=== PATIENT | female | born 1945 | race Two or more races ===

== ENCOUNTER 2022-06-16 15:30 | Emergency (ER) | payer OTHER ==
[~2022-06-16] VITALS: Ht 162.6 cm; Wt 81.6 kg
--- NOTE | 2022-06-16 16:41 | NUR ---
XRAY AT BEDSIDE
--- NOTE | 2022-06-16 18:16 | NUR ---
[facility] EMT AUBREY AT BEDSIDE. REPORT GIVEN TO BE TRANSPORTED BACK TO SNF.
[2022-06-16 18:23] VITALS: BP 148/54
== END 2022-06-16 18:24 ==
LOC: ER 15:35
DX: M25.552 Pain in left hip (principal); M25.562 Pain in left knee; M79.652 Pain in left thigh; I48.91 Unspecified atrial fibrillation; E11.22 Type 2 diabetes mellitus with diabetic chronic kidney disease; I12.0 Hypertensive chronic kidney disease with stage 5 chronic kidney disease or end stage renal disease; N18.6 End stage renal disease; Z99.2 Dependence on renal dialysis; Z95.1 Presence of aortocoronary bypass graft; Z85.038 Personal history of other malignant neoplasm of large intestine; Z88.6 Allergy status to analgesic agent; W01.198A Fall on same level from slipping, tripping and stumbling with subsequent striking against other object, initial encounter; Y93.89 Activity, other specified; Y92.009 Unspecified place in unspecified non-institutional (private) residence as the place of occurrence of the external cause; Y99.9 Unspecified external cause status
CPT/HCPCS: 73020; 73552; 73564-TC